=== PATIENT | female | born 1950 | race African-American/Black ===

== ENCOUNTER 2018-03-17 12:47 | Emergency (ER) | payer MEDICARE, OTHER ==
[~2018-03-17] VITALS: Ht 162.6 cm; Wt 87.0 kg
[2018-03-17 12:55] VITALS: BP 120/56
== END 2018-03-17 15:35 | disposition home or self-care (01) ==
LOC: ER 12:47
DX: M19.011 Primary osteoarthritis, right shoulder (principal); Z98.890 Other specified postprocedural states
CPT/HCPCS: 73030; 99284

== ENCOUNTER 2021-01-07 08:24 | Emergency (ER) | payer OTHER ==
[~2021-01-07] VITALS: Ht 162.6 cm; Wt 81.0 kg
[2021-01-07 08:41] VITALS: BP 156/85
[2021-01-07] MEDS ORDERED: CYCL10TA7 MT (08:59)
== END 2021-01-07 09:11 | disposition home or self-care (01) ==
LOC: ER 08:24
DX: M62.838 Other muscle spasm (principal); F17.200 Nicotine dependence, unspecified, uncomplicated; I10 Essential (primary) hypertension; E78.00 Pure hypercholesterolemia, unspecified; Z87.11 Personal history of peptic ulcer disease
CPT/HCPCS: 99281

== ENCOUNTER 2024-02-28 08:33 | Emergency (ER) | payer BC, OTHER ==
[~2024-02-28] VITALS: Ht 162.6 cm; Wt 73.0 kg
[~2024-02-28 08:33] MED LIST: CYCL10TA21 MT
[2024-02-28 08:38] VITALS: O2SAT 97
[2024-02-28 09:04] LABS: BASOPHILS % 0.4 % (0.0-2.0); EOSINOPHILS % 1.7 % (0.0-5.0); HEMATOCRIT. 38.7 % (36.0-48.0); HEMOGLOBIN. 13.1 g/dL (12.0-16.0); LYMPHOCYTES % 35.5 % (20.0-50.0); MEAN CORPUSCULAR HEMOGLOBIN 33.7 pg (28.0-32.0); MEAN CORPUSCULAR HGB CONC 33.9 g/dL (31.0-37.0); MEAN CORPUSCULAR VOLUME 99.3 fL (81.0-99.0); MONOCYTES % 12.1 % (2.0-8.0); NEUTROPHILS % 50.3 % (40.0-76.0); PLATELET 226 x1000/uL (130-400); RED CELL DISTRIBUTION WIDTH 13.9 % (11.6-14.6); WHITE BLOOD COUNT 5.2 x1000/uL (4.5-11.0)
[2024-02-28 09:05] VITALS: PULSE 88; RESP 20
[2024-02-28] MEDS: IPRATROPIUM/ALBUTEROL 0.5-3(2.5)MG/3ML NEB HHN STA (09:06)
[2024-02-28 09:15] LABS: CHLORIDE 110 mEq/L (98-107); POTASSIUM 3.7 mEq/L (3.5-5.1); SODIUM 138 mEq/L (136-145)
[2024-02-28 09:16] LABS: CARBON DIOXIDE 21 mEq/L (21-32)
[2024-02-28 09:17] LABS: CALCIUM 9.4 mg/dL (8.7-10.4)
[2024-02-28 09:21] LABS: CREATININE 0.8 mg/dL (0.6-1.0); GLUCOSE 109 mg/dL (70-105); UREA NITROGEN BLOOD 10 mg/dL (9-23)
[2024-02-28 09:22] LABS: TROPONIN I HIGH SENSITIVITY 19 ng/L (3.0-34)
[2024-02-28] MEDS: PREDNISONE 20MG TABLET PO STA (09:22)
[2024-02-28] MEDS ORDERED: P20 PO (09:57)
[2024-02-28] MEDS ORDERED: ALBU18HF2 IH (09:57)
[2024-02-28 10:09] VITALS: BP 125/70; PULSE 84; RESP 20; TEMP 36.89184; O2SAT 97
== END 2024-02-28 10:20 | disposition home or self-care (01) ==
LOC: ER 08:33
DX: J44.1 Chronic obstructive pulmonary disease with (acute) exacerbation (principal); I10 Essential (primary) hypertension; E78.00 Pure hypercholesterolemia, unspecified; Z98.890 Other specified postprocedural states
CPT/HCPCS: 99285; 71045; 80048; 85025; 84484; 36415; 94640; 93005; J7512

== ENCOUNTER 2024-03-11 08:27 | Emergency (ER) | payer BC, OTHER ==
[~2024-03-11] VITALS: Ht 162.6 cm; Wt 73.0 kg
[~2024-03-11 08:27] MED LIST changes: +ALBU18HF2 IH; +P20 PO
[2024-03-11 08:31] VITALS: O2SAT 97
[2024-03-11 08:39] VITALS: BP 126/88; TEMP 98.4; O2SAT 98
[2024-03-11 09:56] VITALS: PULSE 90; RESP 24
[2024-03-11] MEDS: IPRATROPIUM BROMIDE (0.02%) 0.5MG/2.5ML NEB HHN STA (09:56)
[2024-03-11] MEDS: ALBUTEROL (0.083%) 2.5MG/3ML NEB HHN STA (09:57)
[2024-03-11] MEDS: PREDNISONE 20MG TABLET PO STA (10:04)
[2024-03-11 10:06] LABS: BASOPHILS % 0.6 % (0.0-2.0); DIFFERENTIAL COMMENT 0; EOSINOPHILS % 1.3 % (0.0-5.0); HEMATOCRIT. 39.2 % (36.0-48.0); HEMOGLOBIN. 13.2 g/dL (12.0-16.0); LYMPHOCYTES % 32.2 % (20.0-50.0); MEAN CORPUSCULAR HEMOGLOBIN 33.7 pg (28.0-32.0); MEAN CORPUSCULAR HGB CONC 33.6 g/dL (31.0-37.0); MEAN CORPUSCULAR VOLUME 100.3 fL (81.0-99.0); MEAN PLATELET VOLUME 8.8 fl (7.4-10.4); MONOCYTES % 12.8 % (2.0-8.0); NEUTROPHILS % 53.1 % (40.0-76.0); PLATELET 240 x1000/uL (130-400); RED BLOOD CELL COUNT 3.91 mill/uL (4.2-5.4); WHITE BLOOD COUNT 5.6 x1000/uL (4.5-11.0)
[2024-03-11 10:27] LABS: CHLORIDE 105 mEq/L (98-107); POTASSIUM 3.6 mEq/L (3.5-5.1); SODIUM 137 mEq/L (136-145)
[2024-03-11 10:28] LABS: CARBON DIOXIDE 24 mEq/L (21-32)
[2024-03-11 10:29] LABS: CALCIUM 9.5 mg/dL (8.7-10.4)
[2024-03-11 10:33] LABS: CREATININE 0.9 mg/dL (0.6-1.0); GLUCOSE 103 mg/dL (70-105); UREA NITROGEN BLOOD 8 mg/dL (9-23)
[2024-03-11 10:34] LABS: TROPONIN I HIGH SENSITIVITY 18 ng/L (3.0-34)
[2024-03-11 10:35] LABS: ALANINE AMINOTRANSFERASE 12 IU/L (10-49); ALBUMIN 4.2 g/dL (3.2-4.8); ASPARTATE AMINOTRANSFERASE 23 IU/L (<34)
[2024-03-11 10:36] LABS: BILIRUBIN DIRECT 0.2 mg/dL (<=3.0); BILIRUBIN TOTAL 0.8 mg/dL (0.1-1.0)
[2024-03-11] MEDS ORDERED: P50 MT (11:00)
== END 2024-03-11 11:20 | disposition home or self-care (01) ==
LOC: ER 08:27 → EDBEDREQ 09:38 → ER 11:20
DX: J44.1 Chronic obstructive pulmonary disease with (acute) exacerbation (principal); E78.00 Pure hypercholesterolemia, unspecified; I25.2 Old myocardial infarction; I11.9 Hypertensive heart disease without heart failure; Z79.899 Other long term (current) drug therapy
CPT/HCPCS: 99285; 71045; 80076; 80048; 83880; 85025; 84484; 36415; 94640; 93005; J7512

== ENCOUNTER 2024-07-22 16:39 | Inpatient (IN) | payer OTHER ==
[~2024-07-22] VITALS: Ht 162.6 cm; Wt 67.2 kg
[~2024-07-22 16:39] MED LIST changes: +CARV3.1242 MT; +FURO-151 MT; +LOSA25TA26 MT; +OMEP40CA20 MT; -P20 PO; +POTA-205 MT
[2024-07-22 18:02] LABS: BASOPHILS % 0.1 % (0.0-2.0); EOSINOPHILS % 0.2 % (0.0-5.0); HEMATOCRIT. 40.1 % (36.0-48.0); HEMOGLOBIN. 12.5 g/dL (12.0-16.0); LYMPHOCYTES % 15.6 % (20.0-50.0); MEAN CORPUSCULAR HGB CONC 31.2 g/dL (31.0-37.0); MEAN CORPUSCULAR VOLUME 105.6 fL (81.0-99.0); MEAN PLATELET VOLUME 10.3 fl (7.4-10.4); MONOCYTES % 10.9 % (2.0-8.0); NEUTROPHILS % 73.2 % (40.0-76.0); PLATELET 116 x1000/uL (130-400); RED BLOOD CELL COUNT 3.79 mill/uL (4.2-5.4); RED CELL DISTRIBUTION WIDTH 22.4 % (11.6-14.6); WHITE BLOOD COUNT 7.6 x1000/uL (4.5-11.0)
[2024-07-22 18:07] LABS: CHLORIDE 103 mEq/L (98-107); POTASSIUM 3.8 mEq/L (3.5-5.1); SODIUM 139 mEq/L (136-145)
[2024-07-22 18:08] LABS: CALCIUM 8.8 mg/dL (8.7-10.4); CARBON DIOXIDE 28 mEq/L (21-32); DIFFERENTIAL COMMENT 1
[2024-07-22 18:09] LABS: ADD RBC MORPHOLOGY YES
[2024-07-22 18:13] LABS: CREATININE 0.8 mg/dL (0.6-1.0); GLUCOSE 195 mg/dL (70-105); UREA NITROGEN BLOOD 17 mg/dL (9-23)
[2024-07-22 18:29] LABS: TROPONIN I HIGH SENSITIVITY 90 ng/L (3.0-34)
[2024-07-22 18:32] LABS: PLATELET ESTIMATE NORMAL
[2024-07-22] MEDS: ASPIRIN 81MG TABLET PO ONE (19:11)
[2024-07-22 20:35] LABS: TROPONIN I HIGH SENSITIVITY 84 ng/L (3.0-34)
[2024-07-22 22:00] VITALS: BP 102/81; PULSE 57; RESP 20; TEMP 36.4
[2024-07-22] MEDS ORDERED: CLONIDINE 0.1MG TABLET PO PRN (22:45)
[2024-07-22] MEDS ORDERED: GUAIFENESIN 200MG/10ML SUGAR FREE UDC PO PRN (22:45)
[2024-07-22] MEDS ORDERED: MAGNESIUM/ALUMINUM HYDROXIDE/SIMETHICONE 30ML UDC PO PRN (22:45)
[2024-07-22] MEDS ORDERED: DEXTROSE 50% WATER 50ML SYRINGE IV PRN (22:45)
[2024-07-22] MEDS ORDERED: DOCUSATE SODIUM 100MG CAPSULE PO PRN (22:45)
[2024-07-22] MEDS ORDERED: LORAZEPAM 0.5MG TABLET PO PRN (22:45)
[2024-07-22] MEDS ORDERED: ACETAMINOPHEN 325MG TABLET PO PRN (22:45)
[2024-07-22] MEDS ORDERED: ONDANSETRON HCL 4MG/2ML INJ IV PRN (22:45)
[2024-07-22] MEDS ORDERED: IPRATROPIUM/ALBUTEROL 0.5-3(2.5)MG/3ML NEB HHN PRN (22:45)
[2024-07-22] MEDS: LOSARTAN 25 MG TABLET PO SCH (23:00)
[2024-07-23] VITALS: BP 111/48; PULSE 99; RESP 18; TEMP 36.3; O2SAT 99
[2024-07-23 04:00] VITALS: BP 100/64; PULSE 93; RESP 20; TEMP 36; O2SAT 100
[2024-07-23 06:27] LABS: DIFFERENTIAL COMMENT 0; EOSINOPHILS % 0.1 % (0.0-5.0); HEMATOCRIT. 37.1 % (36.0-48.0); HEMOGLOBIN. 12.2 g/dL (12.0-16.0); LYMPHOCYTES % 14.1 % (20.0-50.0); MEAN CORPUSCULAR HEMOGLOBIN 33.8 pg (28.0-32.0); MEAN CORPUSCULAR VOLUME 102.5 fL (81.0-99.0); MEAN PLATELET VOLUME 10.3 fl (7.4-10.4); MONOCYTES % 12.1 % (2.0-8.0); NEUTROPHILS % 73.7 % (40.0-76.0); PLATELET 96 x1000/uL (130-400); RED BLOOD CELL COUNT 3.62 mill/uL (4.2-5.4); RED CELL DISTRIBUTION WIDTH 21.3 % (11.6-14.6); WHITE BLOOD COUNT 7.6 x1000/uL (4.5-11.0)
[2024-07-23 06:31] LABS: CARBON DIOXIDE 29 mEq/L (21-32); CHLORIDE 102 mEq/L (98-107); CREATINE KINASE MB FRACTION 1.9 ng/mL (0.5-3.6); POTASSIUM 3.5 mEq/L (3.5-5.1); SODIUM 140 mEq/L (136-145)
[2024-07-23 06:32] LABS: CALCIUM 8.7 mg/dL (8.7-10.4)
[2024-07-23 06:37] LABS: CREATININE 0.6 mg/dL (0.6-1.0); GLUCOSE 137 mg/dL (70-105); UREA NITROGEN BLOOD 15 mg/dL (9-23)
[2024-07-23 06:39] LABS: ALANINE AMINOTRANSFERASE 45 IU/L (10-49); ASPARTATE AMINOTRANSFERASE 27 IU/L (<34); BILIRUBIN DIRECT 0.9 mg/dL (<=3.0); BILIRUBIN TOTAL 1.8 mg/dL (0.1-1.0); PROTEIN TOTAL 5.7 g/dL (6.0-8.3)
[2024-07-23] MEDS: BLOOD SUGAR DIAGNOSTIC STRIP TEST SCH (07:40)
[2024-07-23 08:02] VITALS: BP 109/58; PULSE 88; RESP 18; O2SAT 98
[2024-07-23] MEDS: INSULIN LISPRO (LOW DOSE) 100 UNITS/ML SUBCUT SCH (08:10)
[2024-07-23] MEDS: CARVEDILOL 3.125 MG TABLET PO SCH (09:00)
[2024-07-23] MEDS ORDERED: MEDICATION NOT ON FORMULARY EA (Omeprazole 1 CAP) MT SCH (09:00)
[2024-07-23] MEDS: ASPIRIN 81MG EC TABLET PO SCH (09:25)
[2024-07-23] MEDS: FUROSEMIDE 40MG TABLET PO SCH (09:26)
[2024-07-23] MEDS: PANTOPRAZOLE 40MG DR TABLET PO SCH (09:26)
[2024-07-23] MEDS: POTASSIUM CHLORIDE 20MEQ TABLET SR PO SCH (09:26)
[2024-07-23] MEDS: ENOXAPARIN 40MG/0.4ML SYR SUBCUT SCH (10:22)
[2024-07-23 13:33] VITALS: BP 95/52; PULSE 87; RESP 19; TEMP 35.8; O2SAT 97
[2024-07-23 14:05] LABS: *AMPHETAMINES SCREEN URINE NEGATIVE (NEGATIVE); *BARBITURATES SCREEN URINE NEGATIVE (NEGATIVE); *BENZODIAZEPINES SCREEN URINE NEGATIVE (NEGATIVE); *COCAINE SCREEN URINE NEGATIVE (NEGATIVE)
[2024-07-23 14:06] LABS: CANNABINOID URINE SCREEN NEGATIVE (NEGATIVE); ECSTASY MDMA SCREEN URINE NEGATIVE (NEGATIVE); METHADONE URINE SCREEN NEGATIVE (NEGATIVE); OPIATES URINE SCREEN NEGATIVE (NEGATIVE); PHENCYCLIDINE URINE SCREEN NEGATIVE (NEGATIVE)
[2024-07-23 16:10] VITALS: BP 93/62; PULSE 68; RESP 17; TEMP 36.2; O2SAT 97
[2024-07-23 16:32] LABS: CREATINE KINASE MB FRACTION 2.4 ng/mL (0.5-3.6)
[2024-07-23] MEDS ORDERED: INSULIN LISPRO 100 UNITS/ML SUBCUT SCH (17:40)
[2024-07-23] MEDS: POTASSIUM PHOSPHATE 15 MMOL in DEXT 5% WATER 245 ML IV NR (19:04)
[2024-07-23 20:00] VITALS: BP 127/77; PULSE 73; RESP 18; TEMP 36.4; O2SAT 99
[2024-07-23] MEDS: ACETAMINOPHEN 325MG TABLET PO PRN (21:15)
[2024-07-23] MEDS: POTASSIUM CHLORIDE 20MEQ TABLET SR PO NR (21:16)
[2024-07-23] MEDS: ATORVASTATIN CALCIUM 40MG TABLET PO SCH (21:16)
[2024-07-24] VITALS: BP 97/55; PULSE 79; RESP 18; TEMP 36.3; O2SAT 97
[2024-07-24 04:00] VITALS: BP 97/71; PULSE 71; RESP 18; TEMP 36.3; O2SAT 95
[2024-07-24 06:47] LABS: CALCIUM 8.7 mg/dL (8.7-10.4); CARBON DIOXIDE 30 mEq/L (21-32); CHLORIDE 103 mEq/L (98-107); POTASSIUM 3.9 mEq/L (3.5-5.1); SODIUM 142 mEq/L (136-145)
[2024-07-24 06:52] LABS: CREATININE 0.6 mg/dL (0.6-1.0); GLUCOSE 109 mg/dL (70-105)
[2024-07-24 06:53] LABS: UREA NITROGEN BLOOD 13 mg/dL (9-23)
[2024-07-24 06:54] LABS: PHOSPHORUS 1.9 mg/dL (2.5-4.9)
[2024-07-24 08:00] VITALS: BP 97/58; PULSE 77; RESP 20; TEMP 36.2; O2SAT 98
[2024-07-24] MEDS: POTASSIUM-SODIUM PHOSPHATE POWDER PACKET PO NR (08:00)
[2024-07-24 08:24] LABS: BASOPHILS % 0.2 % (0.0-2.0); EOSINOPHILS % 0.2 % (0.0-5.0); HEMATOCRIT. 36.6 % (36.0-48.0); HEMOGLOBIN. 11.9 g/dL (12.0-16.0); MEAN CORPUSCULAR HEMOGLOBIN 33.4 pg (28.0-32.0); MEAN CORPUSCULAR HGB CONC 32.5 g/dL (31.0-37.0); MEAN CORPUSCULAR VOLUME 102.7 fL (81.0-99.0); MONOCYTES % 12.5 % (2.0-8.0); NEUTROPHILS % 72.1 % (40.0-76.0); PLATELET 90 x1000/uL (130-400); RED BLOOD CELL COUNT 3.56 mill/uL (4.2-5.4); WHITE BLOOD COUNT 7.2 x1000/uL (4.5-11.0)
[2024-07-24 09:36] LABS: DIFFERENTIAL COMMENT 1
[2024-07-24 12:00] VITALS: BP 108/57; PULSE 86; RESP 18; TEMP 36.3; O2SAT 100
[2024-07-24 16:00] VITALS: BP 110/59; PULSE 81; RESP 18; TEMP 36.3; O2SAT 99
[2024-07-24 19:44] VITALS: BP 105/76; PULSE 99; TEMP 97.6; O2SAT 92
== END 2024-07-24 20:20 | disposition home or self-care (01) | DRG 915 ==
LOC: ER 16:39 → EDBEDREQ 21:11 → EDBEDREQTM 21:11 → 7WST 22:14
PROVIDERS: ADMIT Hospitalist; ATTEND Hospitalist
DX: T78.3XXA Angioneurotic edema, initial encounter (principal); I21.4 Non-ST elevation (NSTEMI) myocardial infarction; I50.22 Chronic systolic (congestive) heart failure; G89.29 Other chronic pain; I11.0 Hypertensive heart disease with heart failure; J44.9 Chronic obstructive pulmonary disease, unspecified; D75.89 Other specified diseases of blood and blood-forming organs; E11.9 Type 2 diabetes mellitus without complications; E78.00 Pure hypercholesterolemia, unspecified; F17.210 Nicotine dependence, cigarettes, uncomplicated; Z79.899 Other long term (current) drug therapy; Y82.8 Other medical devices associated with adverse incidents; Y92.89 Other specified places as the place of occurrence of the external cause
CPT/HCPCS: 36415; 71045; 80048; 80076; 80305; 82550; 82553; 82962; 83735; 83880; 84100; 84484; 85025; 93005; 93970; 99285; A4606; J1650; J1815; J3490; J7060